=== PATIENT | female | born 1960 | race Caucasian/White ===

== ENCOUNTER → 2017-10-02 08:19 | Outpatient (CLI) | payer BC, OTHER, SELFPAY ==
[2017-10-02 08:23] LABS: Microscopic, Urine URINE MICROSCOPIC (MICROSCOPIC)
--- NOTE | 2017-10-02 08:51 | XR_ITS ---
XR chest 2V HISTORY: ITS.REASON: HTN,H/O TOBACCO USE ORDERING PHYSICIAN: Kermit Rosales MD PATIENT AGE: 57 years COMPARISON: 08/05/2016 FINDINGS: The cardiomediastinal silhouette and pulmonary vascularity are within normal limits. No lobar consolidation or collapse. There is a faint nodular opacity overlying the right hemidiaphragm. This may very well represent a summation density. Follow-up chest x-ray may confirm stability. There are degenerative changes in the thoracic spine. No acute bony abnormalities. IMPRESSION: No acute finding. Minimal nodularity right lung base possibly due to summation artifact and may be confirmed with follow-up
[2017-10-02 09:02] LABS: Basophils % 0.4 % (0.1-2.0); Eosinophils # 0.2 K/mm3 (0.0-0.4); Eosinophils % 3.4 % (0.1-12.0); Hematocrit 46.5 % (37.0-47.0); Lymphocytes # 2.3 K/mm3 (0.7-4.5); Lymphocytes % 35.2 K/mm3 (10-50); Mean Corpuscular HGB Conc 32.2 g/dL (31.8-35.4); Mean Corpuscular Hemoglobin 28.8 pg (27.0-31.2); Mean Corpuscular Volume 89.3 fl (81-99); Monocytes # 3.8 K/mm3 (0.1-1.0); Monocytes % 59.8 % (1.7-9.3); Neutrophils # 0.1 K/mm3 (1.8-7.8); Platelet Count 354 K/mm3 (142-424); Red Blood Count 5.21 M/mm3 (4.20-5.40); Red Cell Distribution Width 13.9 % (11.5-17.5); White Blood Count 6.4 K/mm3 (4.8-10.8)
[2017-10-02 09:23] LABS: Alanine Aminotransferase 77 U/L (12-78); Albumin Level 3.8 gm/dL (3.4-5.0); Albumin/Globulin Ratio 0.9 (1.1-1.8); Alkaline Phosphatase 120 U/L (46-116); Anion Gap 10.9 mEq/L (5-15); Aspartate Amino Transferase 42 U/L (15-37); Bilirubin,Total 0.5 mg/dL (0.2-1.0); Blood Urea Nitrogen 12 mg/dL (7-18); Calcium 9.3 mg/dL (8.5-10.1); Carbon Dioxide 29 mmol/L (21.0-32.0); Chloride 106 mmol/L (98-107); Chol/HDL Ratio 5.7 (1-3.5); Cholesterol 201 mg/dL (140-200); Creatinine,Serum 0.75 mg/dL (0.55-1.02); Estimated Glomerular Filt Rate 80 ml/min (>60); GFR (African American) 97 ML/MIN (>60); Globulin 4.4 gm/dl (1.3-3.2); Glucose 97 mg/dL (74-106); HDL Cholesterol 35 mg/dL (29-89); LDL Cholesterol 142 mg/dL (0-130); Neutrophils % 1.2 % (37.0-80.0); Potassium 3.9 mmoL/L (3.5-5.1); Sodium 142 mmol/L (136-145); Total Protein,Serum 8.2 gm/dL (6.4-8.2); Triglycerides 120 mg/dL (30-200); VLDL Cholesterol 24 mg/dL (0-40)
[2017-10-02 09:24] LABS: Activated Partial Thrombo Time 30.6 seconds (23.6-34.0); INR 1.02 (0.9-1.1); Prothrombin Time 10.5 seconds (9.4-11.8)
[2017-10-02 09:57] LABS: MANUAL DIFFERENTIAL MANUAL DIFFERENTIAL (MANUAL DIFF)
[2017-10-02 10:02] LABS: Bilirubin,Urine Negative (Negative); Blood, Urine Negative (Negative); Color,Urine YELLOW (Yellow); Glucose,Urine (UA) Negative (Negative); Ketones,Urine Negative (Negative); Leukocyte Esterase,Urine Negative (Negative); Nitrate,Urine Negative (Negative); Protein,Urine 1+ (Negative); Specific Gravity, Urine >= 1.030 (1.005-1.030); Urobilinogen,Urine 0.2 EU/dl (0.2)
[2017-10-02 10:04] LABS: Appearance,Urine Slightly Cloudy (Clear)
[2017-10-02 10:13] LABS: Bacteria,Urine 1+ /lpf; WBC,Urine Occasional #/hpf (0-3)
[2017-10-02 11:22] LABS: Eosinophils % 1 % (0-3); Lymphocytes % 18 % (10-50); Monocytes % 23 % (2-9); Neutrophils % 58 % (42-76); Platelet Estimate Normal; RBC Morphology Normal; Total Cells Counted 100
[2017-10-03 09:17] LABS: Creatinine, Urine 207.3 mg/dL (Not Estab.); Microalbumin, Urine 79.9 ug/mL (Not Estab.)
== END ==
PROVIDERS: Visit Provider Family Medicine
DX: Z01.818 Encounter for other preprocedural examination (principal); I10 Essential (primary) hypertension
CPT/HCPCS: 36415; 71046; 80053; 80061; 81001; 82043; 82570; 84443; 85007; 85025; 85610; 85730; 93005

== ENCOUNTER → 2017-10-09 13:37 | Outpatient (CLI) | payer BC, OTHER, SELFPAY ==
--- NOTE | 2017-10-09 13:51 | CT_ITS ---
EXAM: CT LUNG LOW DOSE WO CONTRAST COMPARISON: No prior CT studies only limited PA and lateral chest films HISTORY: 1 pack per day for 43 years ago 43 pack-year. Patient asymptomatic TECHNIQUE: The exam was performed on a GE Light Speed [address] scanner using 3.0 mGy CTDI. A low dose helical CT CHEST was performed on a multi-detector scanner. All CT scans at this facility use one or more dose reduction techniques, viz.: automated exposure control; ma/kV adjustment per patient size (including targeted exams where dose is matched to indication; i.e. head) or iterative reconstruction technique. The LDCT was performed in a facility that meets the criteria for the screening program. Data regarding this exam was submitted to ACR which is an approved registry. The order for this exam indicates that it came as a result of a lung cancer screening counseling shard decision-making visit that included all the elements required of such a visit including smoking cessation. The radiologist interpreting this exam meets the CMS criteria for the LDCT lung cancer screening program. The exam is reported using the Lung-RADS classification scale and reported to the ACR registry. NOTE: This study was performed for the specific purposes of lung cancer screening and is not an alternative to diagnostic chest CT. RADIATION DOSE: CTDI vol(CT dose Index-volume) = 2.9mGy DLP (Dose Length Product) = 96.27 mGy-cm 2 FINDINGS: No suspicious lung nodules or masses. Indeterminate or Suspicious Lung Nodules(Category3-4B): None no suspicious lung nodules or masses Indeterminate/Non-actionable Nodules(Category2): . Tiny pleural-based nodule anterior RML axial slice 56. Just over 4 mm size. Benign nodules(Category1): . 6 mm calcified granuloma at right lower lobe sagittal slice 30 axial 55q . Small 4.5 mm calcified granuloma just superior to the minor fissure at RUL. Sagittal slice 33 axial 42 LUNG PARENCHYMA Emphysema minimal centrilobular emphysematous changes Minimal linear scarring is seen towards the lung bases bilaterally most evident toward CP angles, posterior sulcus. Borderline to mild fibrotic changes in these areas. OTHER ANATOMIC REGIONS Lymph Nodes: No significant enlarged lymph nodes evident. Scattered small nodes are present in the mediastinum and denise. The largest mediastinal node is at the precarinal region measuring 12 mm x 9.7 mm. Upper normal size. There is a small nodes AP window as well. These can be followed. 1 year. Pleura: Unremarkable Cardiac: Unremarkable OTHER FINDINGS: Upper abdomen. Metallic fragment anterior left left lobe of liver may reflects retinal. On the final images there is a calcification of similar density at the medial liver is anterior to the caudate lobe. IMPRESSION: 1. Lung RADS Category: 2 Small nonspecific 4 mm pleural-based nodule RML Along with scattered small benign calcified granulomas lung ray bilateral Follow-up in LDCT chest one year adequate 2. Other findings: Moderate sized precarinal lymph node. Upper normal. Right denise upper normal prominence most likely due to vascularity Metallic fragment or shrapnel fragment anterior to the left lobe of liver incidentally noted. Yield streak artifact RECOMMENDATIONS: 12 monthd LDCT follow-up
== END ==
PROVIDERS: Family Provider Family Medicine; PCP Family Medicine; Visit Provider Family Medicine
DX: Z12.2 Encounter for screening for malignant neoplasm of respiratory organs (principal); Z87.891 Personal history of nicotine dependence

== ENCOUNTER → 2017-11-11 06:12 | Outpatient (CLI) | payer BC, OTHER, SELFPAY ==
--- NOTE | 2017-11-11 06:14 | NM_ITS ---
History and Indications: Hypertension, tobacco use, family history, shortness of breath and abnormal EKG Procedure: Patient received a 0.4 mg of Lexiscan, resting heart rate was 65 bpm, resting blood pressure 160/81, with Lexiscan maximum heart rate achieved was 92 bpm which is less than 85% of the maximum predicted heart rate and a blood pressure was 125/74. With Lexiscan patient complained of shortness of breath and nausea. Electrocardiogram: Resting electrocardiogram showed sinus rhythm nonspecific ST-T changes, with Lexiscan there is less than 1.[address] segment depression noted from the baseline EKG. The EKG portion of the Lexiscan Myoview is nondiagnostic. Cardiac stress and resting SPECT images: Cardiac stress and rest SPECT images were obtained using technetium 99 Myoview 29.9 mCi at stress and 10.7 mCi at rest. Gated SPECT further analysis of segmental wall motion and calculation of the ejection fraction also done. Cardiac stress and resting SPECT images show a partial reversible defect in the anterior wall with the perfusion of the apex being normal is likely secondary to soft tissue attenuation rather than myocardial ischemia, computer derived ejection fraction is 66% with no obvious regional wall motion abnormality, right ventricle is normal size and contractility. Conclusion: 1. The EKG portion of the Lexiscan Myoview is nondiagnostic. 2. Scintigraphic evidence of partial reversible defect seen in the anterior wall with the perfusion of the apex being normal is likely secondary to soft tissue attenuation rather than myocardial ischemia, computer derived ejection fraction is 66% with no obvious regional wall motion abnormality, right ventricle is normal size and contractility. 3. Likely normal myocardial perfusion imaging.
--- NOTE | 2017-11-11 06:14 | CA_ITS ---
PROCEDURE: 2-D M-mode and color Doppler study INDICATIONS FOR THE TEST: Chest pain + COPD Heart Murmur Tobacco Smoking+ Palpitations Fatigue Syncope Edema Hypertension+Diabetes Mellitus Rheumatic Fever SOB CERDA Obesity Hyperlipidemia Family History HD Additional History PRE-OP KNEE SURGERY, ABN EKG, CP PATIENT INFORMATION HEIGHT:60 WEIGHT:205 GENDER: Female B/P:158/85 2-D/M-MODE INTERPRETATION: 2-D MEASUREMENTS OBSERVED VALUES IN CMS Right Ventricular Dimension (RVDd) 2.4 Interventricular Septum (Thickness)(IVsd) 1.4 Left Ventricular Internal Dimensions(LVIDd) 3.9 Left Ventricular Posterior Wall (Thickness)(LVPWd) 1.2 Aortic Root 2.9 Aortic Cusp Separation 1.7 Left Atrial Dimensions (LAD) 3.4 2D 1. Left atrium is mildly enlarged, there is mild concentric left ventricular hypertrophy, visually estimated ejection fraction 55% with no obvious regional wall motion abnormality. 2. The right atrium and right ventricle are normal size and contractility. 3. The aortic valve is minimally thickened and calcified, leaflet continue to display mobility. 4. The mitral valve has mitral calcification, there is no mitral stenosis. 5. The pulmonic valve is poorly visualized. 6. The tricuspid valve is grossly normal. 7. No significant pericardial effusion noted. DOPPLER INTERROGATION: Doppler interrogation of the aortic, mitral and tricuspid valvular presence of moderate aortic, mild mitral and tricuspid regurgitation, tricuspid regurgitant jet velocity is insufficient for calculation of the right ventricular systolic pressure, grade 1 diastolic dysfunction seen with Doppler evidence of raised left atrial pressure. CONCLUSION: 1. Mildly enlarged left atrium, normal left ventricular size, mild concentric left ventricular hypertrophy, visually estimated ejection fraction 55% with no obvious regional wall motion abnormality, grade 1 diastolic dysfunction seen with tissue Doppler evidence of raised left atrial pressure. 2. Moderate aortic, mild mitral and tricuspid regurgitation 3. No significant pericardial effusion noted.
--- NOTE | 2017-11-11 07:34 | HMH.ITSHM ---
CELEBREX METAXALONE LOSARTAN VENTOLIN DICLOFENAC
== END ==
PROVIDERS: Family Provider Family Medicine; PCP Family Medicine; Visit Provider Internal Medicine Cardiovascular Disease
DX: R94.31 Abnormal electrocardiogram [ECG] [EKG] (principal)
CPT/HCPCS: 78452; 93017; 93306; A9502; J2785

== ENCOUNTER → 2017-11-12 10:18 | Outpatient (CLI) | payer BC, OTHER, SELFPAY ==
[2017-11-12 11:37] LABS: Anion Gap 12.3 mEq/L (5-15); Blood Urea Nitrogen 13 mg/dL (7-18); Calcium 9.3 mg/dL (8.5-10.1); Carbon Dioxide 28 mmol/L (21.0-32.0); Chloride 107 mmol/L (98-107); Creatinine,Serum 0.71 mg/dL (0.55-1.02); Estimated Glomerular Filt Rate 85 ml/min (>60); GFR (African American) 103 ML/MIN (>60); Glucose 96 mg/dL (74-106); Potassium 4.3 mmoL/L (3.5-5.1); Sodium 143 mmol/L (136-145)
== END ==
PROVIDERS: Family Provider Family Medicine; PCP Family Medicine; Visit Provider Physician Assistant
DX: I10 Essential (primary) hypertension (principal)
CPT/HCPCS: 36415; 80048

== ENCOUNTER → 2018-02-15 14:10 | Outpatient (CLI) | payer BC, OTHER, SELFPAY ==
[2018-02-15 19:37] LABS: Blood Urea Nitrogen 16 mg/dL (7-18); Creatinine,Serum 0.82 mg/dL (0.55-1.02); Estimated Glomerular Filt Rate 72 ml/min (>60); GFR (African American) 87 ML/MIN (>60)
== END ==
PROVIDERS: PCP Family Medicine; Visit Provider Internal Medicine Cardiovascular Disease
DX: R07.89 Other chest pain (principal); R06.09 Other forms of dyspnea; R94.31 Abnormal electrocardiogram [ECG] [EKG]
CPT/HCPCS: 36415; 82565; 84520

== ENCOUNTER → 2018-02-16 06:37 | Outpatient (CLI) | payer BC, OTHER, SELFPAY ==
--- NOTE | 2018-02-16 08:34 | CT_ITS ---
CT angio coronary artery INDICATION: Chest pain, dyspnea on exertion, aortic stenosis ITS.REASON: chest pain ORDERING PHYSICIAN: Reddy Koenig MD PATIENT AGE: 57 years COMPARISON: None TECHNIQUE: Appropriate bradycardia was obtained with 50 mg by mouth Gated images obtained following the intravenous administration of 70 mL's of Isovue-370. This was repeated due to mild motion artifact. The patient tolerated the procedure well without evidence of immediate complication. Thin section raw data images are reviewed as well as curved planar and 3-D reformats. FINDINGS: There was some question about definite location of the origin of the right coronary artery on the coronary calcium score exam. The right coronary artery originates from the image aspect of the aortic root from the right aortic cusp. This is somewhat more medial than usual but does not represent a malignant course as it does not pass between the bulk of the main pulmonary artery and aortic root. There is stenosis at the origin of the right artery of at least 50% with a small amount of soft plaque at this region. No significant stenosis of the mid to distal RCA. RCA gives rise to the posterior lateral branch of the left ventricle which is small branch. The PDA is not well delineated. There is an anomalous branch which arises from the midportion of the RCA which courses along the anterior aspect of the heart and extends to the inferior aspect of the intraventricular septum Left main coronary artery has an unremarkable appearance. Mild atheromatous changes involve the mid LAD and circumflex with some minimal soft plaque with no high-grade stenotic lesions evident. Approximately 50% stenosis involving the proximal circumflex IMPRESSION: 1. Nonmalignant origin and course of the right coronary artery arising somewhat more medial than usual but not between the aorta and main pulmonary artery 2. 40-50% stenosis of the ostium of the right coronary artery 3. 50% stenosis of the proximal aspect of the circumflex. 4. 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 A normal PDA is not identified
== END ==
PROVIDERS: PCP Family Medicine; Visit Provider Internal Medicine
DX: R07.9 Chest pain, unspecified (principal); I10 Essential (primary) hypertension; I35.1 Nonrheumatic aortic (valve) insufficiency; Q24.5 Malformation of coronary vessels; R06.00 Dyspnea, unspecified; R94.31 Abnormal electrocardiogram [ECG] [EKG]
CPT/HCPCS: 75574; Q9967

== ENCOUNTER → 2018-09-23 10:40 | Outpatient (CLI) | payer OTHER, SELFPAY ==
--- NOTE | 2018-09-23 11:05 | MR_ITS ---
MR cervical spine wo con, MR 3-d myelogram/MRCP HISTORY: Neck pain with bilateral shoulder are pain and numbness and tingling ITS.REASON: OTHER CERVICAL DISC DISPLACEMENT, RADICULOPATHY CERVICAL REG ORDERING PHYSICIAN: Brett Valles MD PATIENT AGE: 58 years Comparison: None TECHNIQUE: Standard multiplanar multiecho sequences are performed without contrast. 3-D MIP and myelographic images are also rendered and reviewed FINDINGS: There is normal alignment. The craniocervical junction has an unremarkable appearance. C2-C3: Unremarkable. C3-C4: Minimal foraminal narrowing on the right from uncovertebral hypertrophy. C4-C5: Minimal foraminal narrowing on the right from facet and uncovertebral hypertrophy. Minimal central disc protrusion C5-C6: Mild degenerative disc disease. C6-C7: Mild degenerative disc disease with minimal left paracentral disc protrusion causing some mild left lateral recess narrowing. There is increased T1 and T2 signal involving the C7 vertebral body which may be due to hemangiomatous involvement.. T7 T1 has an unremarkable appearance. There is an additional area of increased T1 and T2 signal involving the T3 vertebral body posteriorly and superiorly which is less apparent on the STIR images consistent with lipoma or lipid rich hemangioma IMPRESSION: 1. Minimal foraminal narrowing on the right at C3-C4 and C4-C5 with mild degenerative disc disease at C5-C6. Minimal central disc protrusion C4-C5 without impingement 2. Mild degenerative disc disease C6-C7 with small left paracentral disc protrusion and mild left lateral recess narrowing 3. Abnormal signal intensity at the C7 and T3 vertebral bodies which may be due to hemangiomas/lipomas. Follow-up may confirm stability. 4. No extruded herniated disc or canal stenosis
== END ==
PROVIDERS: Visit Provider Psychiatry & Neurology Neurology
DX: M50.20 Other cervical disc displacement, unspecified cervical region (principal); M50.30 Other cervical disc degeneration, unspecified cervical region; M54.12 Radiculopathy, cervical region
CPT/HCPCS: 72141; 76376

== ENCOUNTER → 2018-09-28 12:51 | Outpatient (CLI) | payer OTHER, SELFPAY ==
--- NOTE | 2018-09-28 12:58 | MR_ITS ---
MR shoulder LT wo con HISTORY:Left shoulder pain with limited range of motion with popping sounds ITS.REASON: PAIN IN LEFT SHOULDER, PARESTHESIA OF SKIN ORDERING PHYSICIAN: Moise Tran MD PATIENT AGE: 58 years Comparison: None TECHNIQUE: Standard multiplanar multiecho sequences are performed without contrast. FINDINGS: There are hypertrophic changes of the acromioclavicular joint with mild downsloping of the acromion laterally there is mild thickening of the distal aspect of the supraspinatus tendon with slight increased T2 signal consistent with tendinopathy/tendinosis. No obvious tear. There is mild thickening also the infraspinatus tendon distally. The subscapularis and teres minor tendons have an unremarkable appearance. No obvious labral tear. Bicipital tendon is in place. IMPRESSION: 1. Tendinopathy/tendinosis of the supraspinatus and infraspinatus tendon. No evidence of rotator cuff tear. 2. There is mild subacromial stenosis with a low-lying acromion which may result in impingement symptomatology.
== END ==
PROVIDERS: Visit Provider Family Medicine
DX: M25.512 Pain in left shoulder (principal); R20.2 Paresthesia of skin
CPT/HCPCS: 73221

== ENCOUNTER → 2019-09-19 10:21 | Outpatient (CLI) | payer OTHER, SELFPAY ==
--- NOTE | 2019-09-19 10:37 | MR_ITS ---
PROCEDURE: MR SHOULDER LT WO CON CLINICAL INDICATION: PAIN IN LEFT SHOULDER, PARESTHESIA OF SKIN Neck injury with pain, left shoulder pain and weakness COMPARISON: UEAJW/OLT MRI-UP EXT ANY JNT W/O-LT from 01/08/2015 TECHNIQUE: Routine multiplanar multi echo sequences are performed without gadolinium enhancement. FINDINGS: Exam is somewhat limited secondary to patient's body habitus. Increased T2 signal is present within the supraspinatus tendon consistent with tendinopathy/tendinosis. A complete or full-thickness tear is not identified. There is some focal increased T2 signal involving the inferior surface of the posterior aspect of the supraspinatus tendon which may indicate a partial tear. The tendon is not well delineated anteriorly due to internal rotation of the shoulder. There is subacromial stenosis as before. The infraspinatus tendon appears intact with some increased T2 signal consistent with tendinopathy/tendinosis. The subscapularis and teres minor tendons appear intact. No obvious labral tear. Bicipital tendon is in place. Osteoarthritic changes are present at the AC joint with mild subacromial stenosis IMPRESSION: Somewhat limited exam due to patient's body habitus and positioning. There is tendinopathy/tendinosis of the supraspinatus and infraspinatus tendon with possible partial tear of the supraspinatus tendon along the under surface Dictated by: Oleg Copeland MD 09/21/2019 14:10 Electronically signed by Oleg Copeland MD in [place] 09/21/2019 14:10
== END ==
PROVIDERS: Visit Provider Psychiatry & Neurology Neurology
DX: M25.512 Pain in left shoulder (principal); R20.2 Paresthesia of skin
CPT/HCPCS: 73221

== ENCOUNTER → 2020-12-10 09:22 | Outpatient (CLI) | payer MEDICARE, OTHER, SELFPAY ==
--- NOTE | 2020-12-10 09:23 | CA_ITS ---
APPROVED REPORT Quality Control Lab Tech: Kate Rodrigues RVT Laterality: Bilateral Study Quality: Good Indications: hand numbness, cad Risk Factors Hypertension: Smoking Doppler Spectral Velocity Analysis ECA (R) 204.70/20.90 cm/s ECA (L) 122.60/13.90 cm/s dICA (R) 82.30/21.40 cm/s dICA (L) 105.90/27.90 cm/s Jamaal (R) 97.30/29.90 cm/s Jamaal (L) 149.00/41.80 cm/s pICA (R) 97.30/26.70 cm/s pICA (L) 110.00/29.20 cm/s dCCA (R) 73.80/17.10 cm/s dCCA (L) 75.20/20.90 cm/s pCCA (R) 82.30/15.00 cm/s pCCA (L) 83.60/15.30 cm/s Vert (R) 50.10/16.70 cm/s Vert (L) 36.20/15.30 cm/s ICA/CCA 1.32 ICA/CCA 1.98 Findings Study suggests no evidence of stenosis of the right internal cartoid artery. Study suggests 20-49% stenosis of the left internal cartoid artery. Antegrade flow seen bilateral vertebral arteries. Left internal cartoid artery is tortuous. Conclusion Study suggests no evidence of stenosis of the right internal cartoid artery. Study suggests 20-49% stenosis of the left internal cartoid artery. Antegrade flow seen bilateral vertebral arteries. Left internal cartoid artery is tortuous. Electronically signed by : Oleg Copeland MD 12/10/2020 16:32:59
== END ==
PROVIDERS: PCP Emergency Medicine; Visit Provider Internal Medicine Cardiovascular Disease
DX: I25.10 Atherosclerotic heart disease of native coronary artery without angina pectoris (principal); I35.1 Nonrheumatic aortic (valve) insufficiency; Q24.5 Malformation of coronary vessels; R06.00 Dyspnea, unspecified; R07.89 Other chest pain; R20.0 Anesthesia of skin
CPT/HCPCS: 93880

== ENCOUNTER → 2021-01-26 10:51 | Outpatient (CLI) | payer MEDICARE, OTHER, SELFPAY ==
--- NOTE | 2021-01-26 10:54 | MR_ITS ---
PROCEDURE INFORMATION: Exam: MR Cervical Spine Without Contrast Exam date and time: 01/26/2021 10:54 AM Age: 60 years old Clinical indication: Neck pain; Additional info: Cervical disc displacement TECHNIQUE: Imaging protocol: Multiplanar magnetic resonance images of the cervical spine without contrast. COMPARISON: FINDINGS: Vertebrae: No acute fracture is identified. Alignment is anatomic. Heterogeneous high T2 signal is present within C7 vertebral body. Minor intrinsic increased T1 signal within this area is present, suggesting a lipid poor hemangioma. An additional small lipid rich an angioma is noted in the T3 vertebral body. These appear similar to the previous exam. Spinal cord: The cervical cord is of normal signal intensity and size. C2-C3: Mild right facet arthropathy is present. There is no spinal canal or neural foraminal stenosis. C3-C4: There is mild right uncinate spurring, severe right facet arthropathy, and moderate left facet arthropathy. This is causing moderate right neural foraminal narrowing. There is no spinal canal or left foraminal stenosis. C4-C5: There is a small shallow central and right paracentral disc protrusion. Mild right uncinate spurring, severe right facet arthropathy, and mild left facet arthropathy is also present. There is no significant spinal canal stenosis or left neural foraminal narrowing. Moderate right neural foraminal narrowing is present. C5-C6: There is mild uncinate spurring and moderate facet arthropathy. This is causing mild bilateral neural foraminal narrowing. There is no spinal canal stenosis. C6-C7: There is shallow broad-based posterior disc bulging, mild uncinate spurring, and mild facet arthropathy. This is causing mild left and minimal right neural foraminal narrowing. There is no spinal canal stenosis. C7-T1: No significant disc disease. No significant spinal stenosis. Soft tissues: The prevertebral soft tissues are within normal limits. Vertebral arteries: Expected flow voids in the vertebral arteries. IMPRESSION: Degenerative changes of cervical spine as discussed above. This appears similar to the previous exam.
== END ==
PROVIDERS: PCP Emergency Medicine; Visit Provider Psychiatry & Neurology Neurology
DX: M50.20 Other cervical disc displacement, unspecified cervical region (principal); M50.30 Other cervical disc degeneration, unspecified cervical region; M54.12 Radiculopathy, cervical region
CPT/HCPCS: 72141; 76376

== ENCOUNTER → 2021-12-09 06:52 | Outpatient (CLI) | payer MEDICARE, OTHER, SELFPAY ==
--- NOTE | 2021-12-09 09:20 | HMH.ITSHM ---
Current Home Medications as stated by this patient Ashley Thakur or insurance follow up representative. []PREGABALIN OMEPRAZOLE MULTIVITAMIN METFORMIN METAXALONE LISINOPRIL LEVOTHYROXINE HCTZ FENOFIBRATE DICLOFENAC CELECOXIB BISOPROLOL ASA ALBUTEROL
== END ==
PROVIDERS: PCP Emergency Medicine; Visit Provider Physician Assistant
DX: Z01.810 Encounter for preprocedural cardiovascular examination; R06.02 Shortness of breath; Q24.5 Malformation of coronary vessels; I20.8 Other forms of angina pectoris; I35.1 Nonrheumatic aortic (valve) insufficiency
CPT/HCPCS: 78452; 93017; 93306; A9502; J2785